=== PATIENT | female | born 1990 | race Caucasian/White ===

== ENCOUNTER 2016-10-03 21:28 | Emergency (ER) | payer BC ==
[~2016-10-03] VITALS: Ht 165.1 cm; Wt 95.3 kg
[2016-10-03] MEDS ORDERED: NKM (21:42)
[2016-10-03 21:45] VITALS: BP 124/73
[2016-10-03] MEDS ORDERED: IBUPROFEN600 MG ORAL (22:10)
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
[2016-10-03 22:15] VITALS: BP 128/76
== END 2016-10-03 22:15 | disposition home or self-care (01) ==
LOC: EMR 21:55
DX: S16.1XXA Strain of muscle, fascia and tendon at neck level, initial encounter (principal); V43.52XA Car driver injured in collision with other type car in traffic accident, initial encounter; Y92.410 Unspecified street and highway as the place of occurrence of the external cause
CPT/HCPCS: 99283